=== PATIENT | male | born 1970 | race Caucasian/White ===

== ENCOUNTER → 2017-08-20 | Outpatient (CLI) | payer BC ==
[~2017-08-20] MED LIST: ACYCLOVIR400 MG PO; ALPRAZOLAM0.5 MG PO; ASPIR 8181 M1 PO; CENTRUM COMPLE1 EACH PO; CIPROFLOXACIN500 M1 PO; CITRACAL + D C1 EACH PO; DAPSONE25 MG PO; HYDROCHLOROTHIA25 MG PO; LISINOPRIL10 MG PO; METRONIDAZOLE500 MG PO; SPECTRAVITE1 EAC3 PO; ULTRAM50 MG PO; XANAX0.5 MG PO; XARELTO20 MG PO
== END | disposition home or self-care (01) ==
LOC: RAD 11:00
PROC: 0X9 Anatomical Regions, Upper Extremities, Drainage (ICD-10-PCS; principal; 2017-08-20)
DX: L02.414 Cutaneous abscess of left upper limb (principal); B95.61 Methicillin susceptible Staphylococcus aureus infection as the cause of diseases classified elsewhere; Z16.11 Resistance to penicillins
CPT/HCPCS: 75989; 87070; 87075; 87077; 87147; 87186; 87205